=== PATIENT | male | born 1975 | race American Indian/Alaskan Native ===

== ENCOUNTER 2020-11-04 09:07 | Observation (INO) | payer SELFPAY ==
--- NOTE | 2020-11-04 09:28 | Emergency Department Report ---
HPI - General Time Seen by Provider: 11/04/20 09:16 - HPI HPI: 45-year-old -[place] male presents to the emergency department via EMS from dialysis after he developed shortness of breath and diaphoresis. The patient was found to have a very elevated blood pressure as he has been out of some of his blood pressure medications over the past few days, and also did not receive dialysis this morning. He denies any chest pain, headache, vision change, fever, cough. He has a history of hypertension, end-stage renal disease on hemodialysis on Tuesday//Tuesday. His flap presser is Dr. Tran. No recent travel or sick contacts at home. The patient is vaccinated against COVID-19. He was found to have a room air oxygen saturation of 88% upon EMS arrival. The patient was placed on a nonrebreather and went up to 100% on presentation here and is at 95% on 4 L by nasal cannula. ED Review of Systems ROS: Stated complaint: DIFFICULTY BREATHING Other details as noted in HPI Comment: All other systems reviewed and negative Constitutional: diaphoresis. denies: chills, fever Eyes: denies: eye pain, vision change ENT: denies: ear pain, throat pain Respiratory: shortness of breath. denies: cough Cardiovascular: denies: chest pain, edema Gastrointestinal: denies: abdominal pain, vomiting Genitourinary: denies: dysuria, discharge Musculoskeletal: denies: back pain, arthralgia Skin: denies: rash, lesions Neurological: denies: headache, weakness Physical Exam - Physical Exam Physical Exam: GENERAL: The patient is well-developed well-nourished. HENT: Normocephalic. Atraumatic. Patient has moist mucous membranes. EYES: Extraocular motions are intact. NECK: Supple. Trachea is midline. CHEST/LUNGS: Coarse breath sounds throughout the chest. There is tachypnea but no conversational dyspnea. There is a right-sided chest Vas-Cath. HEART/CARDIOVASCULAR: Regular. There is mild tachycardia. There is no murmur. ABDOMEN: Abdomen is soft, nontender. Patient has normal bowel sounds. There is no abdominal distention. SKIN: Skin is warm and dry. NEURO: The patient is awake, alert, and oriented. The patient is cooperative. The patient has no focal neurologic deficits. Normal speech. MUSCULOSKELETAL: There is no tenderness or deformity. There is no limitation ra nge of motion. ED Course - Consultations Consultation #1: 11/04/20 12:31 I spoke to the nurse practitioner, Becky, for [facility] neph[facility], working under Dr. Tran. She is aware of the patient's presentation and the ky ed for expedient dialysis. They are aware of the consult. ED Medical Decision Making - Lab Data Result diagrams: 11/04/20 10:05 11/04/20 10:05 Lab Results 11/04/20 11/04/20 11/04/20 Range/Units 10:05 10:05 10:05 WBC 9.5 (4.5-11.0) K/mm3 RBC 3.60 L (3.65-5.03) M/mm3 Hgb 10.9 L (11.8-15.2) gm/dl Hct 32.7 L (35.5-45.6) % MCV 91 (84-94) fl MCH 30 (28-32) pg MCHC 33 (32-34) % RDW 17.3 H (13.2-15.2) % Plt Count 173 (140-440) K/mm3 Lymph % (Auto) 4.2 L (13.4-35.0) % [place] % (Auto) 7.9 H (0.0-7.3) % Eos % (Auto) 0.5 (0.0-4.3) % Baso % (Auto) 0.6 (0.0-1.8) % Lymph # (Auto) 0.4 L (1.2-5.4) K/mm3 [place] # (Auto) 0.8 (0.0-0.8) K/mm3 Eos # (Auto) 0.1 (0.0-0.4) K/mm3 Baso # (Auto) 0.1 (0.0-0.1) K/mm3 Seg Neutrophils % 86.8 H (40.0-70.0) % Seg Neutrophils # 8.3 H (1.8-7.7) K/mm3 D-Dimer 1139.07 H (0-234) ng/mlDDU Sodium 141 (137-145) mmol/L Potassium 5.1 H (3.6-5.0) mmol/L Chloride 101.2 (98-107) mmol/L Carbon Dioxide 27 (22-30) mmol/L Anion Gap 18 mmol/L BUN 60 H (9-20) mg/dL Creatinine 11.0 H (0.8-1.3) mg/dL Estimated GFR 6 ml/min BUN/Creatinine Ratio 5 % Glucose 97 (75-100) mg/dL Calcium 10.2 (8.4-10.2) mg/dL Total Bilirubin 0.40 (0.1-1.2) mg/dL AST 38 (5-40) units/L ALT 20 (7-56) units/L Alkaline Phosphatase 138 H (35-129) units/L Troponin T 0.244 H* (0.00-0.029) ng/mL NT-Pro-B Natriuret Pep > 96222 H (0-450) pg/mL Total Protein 8.3 H (6.3-8.2) g/dL Albumin 4.2 (3.9-5) g/dL Albumin/Globulin Ratio 1.0 % Triglycerides 43 (2-149) mg/dL Cholesterol 115 (50-199) mg/dL LDL Cholesterol Direct 50 (50-130) mg/dL HDL Cholesterol 62 H (40-59) mg/dL Cholesterol/HDL Ratio 1.85 % - EKG Data -: EKG Interpreted by Me EKG shows normal: sinus rhythm, axis, intervals, QRS complexes (Low voltage), ST-T waves Rate: tachycardia (110 bpm) - EKG Data When compared to previous EKG there are: previous EKG unavailable Interpretation: other (Sinus tachycardia 110 bpm, normal axis, normal intervals, low voltage QRS. No ST elevation DE) - Radiology Data Radiology results: report reviewed, image reviewed interpreted by me: Chest x-ray shows pulmonary vascular congestion and bilateral interstitial edema. No pneumothorax. No widened mediastinum. NUCLEAR MEDICINE PERFUSION LUNG SCAN INDICATION / CLINICAL INFORMATION: SOB, elevated dimer. TECHNIQUE: 5 mCi of Tc-99m MAA were given by IV. COMPARISON: Chest radiograph dated 11/04/2020. FINDINGS: PERFUSION: There is a perfusion defect in the left costophrenic angle which corresponds to a small left pleural effusion noted on chest radiograph. No other perfusion defects are seen. ADDITIONAL FINDINGS: None. IMPRESSION: 1. Low probability for pulmonary embolism. - Medical Decision Making This patient presents to the emergency department from dialysis after having sudden onset of shortness of breath and some diaphoresis that caused him to not receive dialysis. The patient also had some hypoxia that initially required a nonrebreather but we were able to decrease it down to about 4 L oxygen via nasal cannula. Chest x-ray shows volume overload. Labs show the renal insufficiency consistent with his end-stage renal disease on hemodialysis. Mild hyperkalemia. There is an elevated troponin but this is most likely secondary to his ESRD and the patient denies having chest pain. He had an elevated D-dimer level so a ventilation/perfusion scan was performed that came back low probability for a PE. Nephrology was contacted and consulted and he is currently receiving dialysis. The patient will be admitted to the hospitalist and was accepted by Dr. Rodriguez. Critical Care Time: No Critical care attestation.: If time is entered above; I have spent that time in minutes in the direct care of this critically ill patient, excluding procedure time. ED Disposition Clinical Impression: Hypoxia, ESRD needing dialysis, Hypertensive urgency Dyspnea Qualifiers: Dyspnea type: shortness of breath Qualified Code(s): R06.02 - Shortness of breath; R06.00 - Dyspnea, unspecified; R06.01 - Orthopnea Disposition: ADMITTED INPATIENT Is pt being admited?: Yes Condition: Serious Time of Disposition: 11:51
--- NOTE | 2020-11-04 09:48 | XRay Report ---
CHEST 2 VIEWS INDICATION / CLINICAL INFORMATION: Shortness of breath.. COMPARISON: None available. FINDINGS: SUPPORT DEVICES: Right-sided dialysis catheter with tip at the SVC/right atrial junction. HEART / MEDIASTINUM: Enlarged cardiac silhouette area LUNGS / PLEURA: Prominent pulmonary vasculature with faint hazy interstitial markings, possibly repre senting pulmonary vascular congestion/volume overload. No pneumothorax. ADDITIONAL FINDINGS: No significant additional findings. IMPRESSION: Findings suggestive of pulmonary vascular congestion/volume overload. Enlarged cardiac silhouette. Signer Name: Frederick Champagne MD Signed: 11/04/2020 9:43 AM Workstation Name: [id number]
[2020-11-04] MEDS ORDERED: cloNIDine 0.2 MG TAB PO ONE (10:00)
--- NOTE | 2020-11-04 10:25 | Electrocardiograph Report ---
[facility] Test Date: 2020-11-04 Test Time: 09:13:40 Pat Name: DOLORES ROSA Department: Room: Gender: M Loan Approver: LILLIANA : 1975 Requested By: LAUREEN ROQUE Order Number: [id number] Reading MD: Shawn Potter Measurements Intervals [place] Rate: 110 P: 46 IN: 175 QRS: 3 QRSD: 102 T: 81 QT: 352 QTc: 477 Interpretive Statements Sinus tachycardia Low voltage, extremity leads No previous ECG available for comparison Electronically Signed On 11-04-2020 10:24:52 EDT by Shawn Potter
[2020-11-04 11:10] LABS: Basophils # (Auto) 0.1 K/mm3 (0.0-0.1); Basophils % (Auto) 0.6 % (0.0-1.8); Eosinophils # (Auto) 0.1 K/mm3 (0.0-0.4); Eosinophils % (Auto) 0.5 % (0.0-4.3); Hematocrit 32.7 % (35.5-45.6); Hemoglobin 10.9 gm/dl (11.8-15.2); Lymphocytes # (Auto) 0.4 K/mm3 (1.2-5.4); Lymphocytes % (Auto) 4.2 % (13.4-35.0); Mean Corpuscular HGB Conc 33 % (32-34); Mean Corpuscular Volume 91 fl (84-94); Monocytes # (Auto) 0.8 K/mm3 (0.0-0.8); Monocytes % (Auto) 7.9 % (0.0-7.3); Platelet Count 173 K/mm3 (140-440); Red Cell Distribution Width 17.3 % (13.2-15.2)
[2020-11-04 11:37] LABS: Alanine Aminotransferase 20 units/L (7-56); Albumin 4.2 g/dL (3.9-5); Blood Urea Nitrogen 60 mg/dL (9-20); Calcium 10.2 mg/dL (8.4-10.2); Hemolysis Index 0
[2020-11-04 11:46] LABS: BUN/Creatinine Ratio 5
[2020-11-04 12:13] LABS: Chol/HDL Ratio 1.85 %; HDL Cholesterol 62 mg/dL (40-59); LDL Cholesterol,Direct 50 mg/dL (50-130)
--- NOTE | 2020-11-04 14:38 | Nuclear Medicine Report ---
NUCLEAR MEDICINE PERFUSION LUNG SCAN INDICATION / CLINICAL INFORMATION: SOB, elevated dimer. TECHNIQUE: 5 mCi of Tc-99m MAA were given by IV. COMPARISON: Chest radiograph dated 11/04/2020. FINDINGS: PERFUSION: There is a perfusion defect in the left costophrenic angle which corresponds to a small le ft pleural effusion noted on chest radiograph. No other perfusion defects are seen. ADDITIONAL FINDINGS: None. IMPRESSION: 1. Low probability for pulmonary embolism. Signer Name: Nathen Laws MD Signed: 11/04/2020 2:34 PM Workstation Name: [id number]
[2020-11-04 15:13] LABS: Hepatitis C Virus Antibody Non-Reactive (NonReactive)
[2020-11-04 15:23] LABS: Hepatitis B Surface Antigen Nonreactive (Negative)
[2020-11-04 18:35] VITALS: BP 187/98
[2020-11-04] MEDS ORDERED: oxyCODONE /ACETAMINOPHEN 5-325MG TAB PO PRN (20:20)
[2020-11-04] MEDS ORDERED: HYDROmorphone 1 MG/1 ML INJ IV PRN (20:20)
[2020-11-04] MEDS ORDERED: ACETAMINOPHEN 325 MG TAB PO PRN (20:20)
[2020-11-04] MEDS ORDERED: ONDANSETRON 4 MG/2 ML INJ IV PRN (20:20)
[2020-11-04] MEDS ORDERED: VALSARTAN 160MG TAB PO SCH (21:00)
[2020-11-04] MEDS ORDERED: carvediloL 6.25 MG TAB PO SCH (22:00)
[2020-11-04] MEDS ORDERED: HEPARIN 5,000 UNIT/1 ML VIAL SUB-Q SCH (22:00)
[2020-11-04] MEDS ORDERED: FAMOTIDINE 20 MG TAB PO SCH (22:00)
== END 2020-11-05 | disposition left against medical advice (07) ==
LOC: ED 09:07 → 4A 11:51 → INTOOBSV 11:51 → 3A 20:29
PROVIDERS: ADMIT Internal Medicine; ATTEND Internal Medicine
DX: I16.0 Hypertensive urgency (principal); N18.6 End stage renal disease; R09.02 Hypoxemia; R06.00 Dyspnea, unspecified; Z99.2 Dependence on renal dialysis
CPT/HCPCS: 36415; 71046; 78580; 80053; 80061; 80074; 83880; 84484; 85025; 85379; 93005; 99285; A9540; G0257; G0378

== ENCOUNTER 2020-12-17 10:37 | Day surgery (SDC) | payer MEDICARE ==
[~2020-12-17 10:37] MED LIST: MIDAZOLAM 2 MG/2 ML INJ IV NR; SODIUM CHLORIDE 0.9% 1000 ML 1,000 ML IV SCH
[2020-12-17] MEDS ORDERED: HEPARIN 10,000 UNITS/10 ML VIAL ONE (10:40)
[2020-12-17] MEDS ORDERED: PROTAMINE SULFATE 50 MG/5 ML INJ ONE (10:40)
[2020-12-17] MEDS ORDERED: BUPIVACAINE/PF (0.5%) 5 MG/1 ML 30 ML VIAL INFILTRATI ONE (10:40)
[2020-12-17] MEDS ORDERED: SODIUM CHLORIDE 0.9% 250ML 250 ML ONE (10:40)
[2020-12-17] MEDS ORDERED: LIDOCAINE (1%) 10 MG/1 ML VIAL 20 ML MDV ONE (10:40)
[2020-12-17] MEDS ORDERED: THROMBIN (RECOMBINANT) 5,000 UNIT VIAL TP ONE ×2 (10:41→14:19)
[2020-12-17 11:21] LABS: Basophils # (Auto) 0.1 K/mm3 (0.0-0.1); Basophils % (Auto) 1.4 % (0.0-1.8); Eosinophils # (Auto) 0.3 K/mm3 (0.0-0.4); Eosinophils % (Auto) 4.7 % (0.0-4.3); Hematocrit 30.1 % (35.5-45.6); Hemoglobin 9.9 gm/dl (11.8-15.2); Lymphocytes # (Auto) 0.9 K/mm3 (1.2-5.4); Lymphocytes % (Auto) 11.6 % (13.4-35.0); Mean Corpuscular HGB Conc 33 % (32-34); Mean Corpuscular Volume 90 fl (84-94); Monocytes # (Auto) 0.8 K/mm3 (0.0-0.8); Monocytes % (Auto) 11.2 % (0.0-7.3); Platelet Count 212 K/mm3 (140-440); Red Blood Count 3.34 M/mm3 (3.65-5.03); Red Cell Distribution Width 17.1 % (13.2-15.2)
[2020-12-17 11:35] LABS: Calcium 9.3 mg/dL (8.4-10.2)
--- NOTE | 2020-12-17 11:38 | Anesthesia Consultation ---
Anesthesia Consult and Med Hx Date of service: 12/17/20 - Airway Anesthetic Teeth Evaluation: Good ROM Head & Neck: Adequate Mental/Hyoid Distance: Adequate Mallampati Class: Class III Intubation Access Assessment: Possibly Difficult - Pre-Operative Health Status ASA Pre-Surgery Classification: ASA3 Proposed Anesthetic Plan: General - Pulmonary Hx Smoking: No Hx Respiratory Symptoms: No Hx Sleep Apnea: Yes (no CPAP) - Cardiovascular System Hx Hypertension: Yes (took hydralazine, carvedilol, and nifedipine this morning) Hx Heart Attack/AMI: No Hx Percutaneous Transluminal Coronary Angioplasty (PTCA): No Hx Cardia Arrhythmia: No - Central Nervous System CVA: No - Endocrine Hx End Stage Renal Disease: Yes (last HD 12/16/20) Hx Liver Disease: No Hx Insulin Dependent Diabetes: No Hx Non-Insulin Dependent Diabetes: No Hx Thyroid Disease: No - Other Systems Hx Obesity: Yes (BMI 32) - Additional Comments Anesthesia Medical History Comments: No hx anesthetic complications.
[2020-12-17] MEDS ORDERED: ONDANSETRON 4 MG/2 ML INJ IV PRN (11:39)
[2020-12-17] MEDS ORDERED: HYDROcodone/ACETAMINOPHEN 5-325 MG TAB PO PRN (11:39)
[2020-12-17] MEDS ORDERED: fentaNYL 100 MCG/2 ML INJ IV PRN (11:39)
--- NOTE | 2020-12-17 11:39 | Anesthesia Day of Surgery ---
Anesthesia Day of Surgery - Day of Surgery Patient Examined: Yes Patient H&P Reviewed: Yes Patient is NPO: Yes Beta Blockers: Yes
[2020-12-17] MEDS ORDERED: ONDANSETRON 4 MG/2 ML INJ ONE (12:57)
[2020-12-17] MEDS ORDERED: propofoL 200 MG/20 ML VIAL IV ONE (12:57)
[2020-12-17] MEDS ORDERED: LIDOCAINE MPF (2%) 20 MG/1 ML VIAL 5 ML ONE (12:57)
[2020-12-17] MEDS ORDERED: HYDROmorphone 1 MG/1 ML INJ ONE (12:57)
[2020-12-17] MEDS ORDERED: ceFAZolin/Water 2 GM/20 ML 2 GM/20 ML SYRINGE IV ONE (13:33)
[2020-12-17] MEDS ORDERED: ceFAZolin/STERILE WATER 2 GM/20 ML SYRINGE IV NR (14:00)
[2020-12-17] MEDS ORDERED: HEPARIN 10,000 UNITS/10 ML VIAL IR ONE (14:18)
[2020-12-17] MEDS ORDERED: SODIUM CHLORIDE 0.9% IRR 1,500 ML BOTTLE IR ONE (14:19)
[2020-12-17] MEDS ORDERED: PROTAMINE SULFATE 50 MG/5 ML INJ IV ONE (15:00)
--- NOTE | 2020-12-17 15:30 | Post Operative Note ---
Date of procedure: 12/17/20 Pre-op diagnosis: ESRD Post-op diagnosis: same Procedure: Left Arm AV Graft Insertion Anesthesia: GETA Surgeon: RUDOLPH GALLARDO Estimated blood loss: other (25ml) Pathology: none Condition: stable Disposition: PACU
--- NOTE | 2020-12-17 15:32 | Short Stay Summary ---
Short Stay Documentation Date of service: 12/17/20 - History H&P: dictated Past Medical History: ESRD, hypertension - Allergies and Medications Current Medications: Allergies No Known Allergies Allergy (Verified 12/10/20 11:20) Home Medications Medication Instructions Recorded Confirmed Last Taken Type Folic Acid/Vit B Complex and C 800 mcg PO DAILY 12/10/20 12/10/20 Unknown History [Dialyvite 800 Chewable Wafer] Losartan [Cozaar] 100 mg PO QDAY 12/10/20 12/10/20 Unknown History NIFEdipine [Nifedipine] 60 mg PO BID 12/10/20 12/10/20 Unknown History carvediloL [Coreg] 25 mg PO BID 12/10/20 12/10/20 Unknown History hydrALAZINE [Apresoline] 50 mg PO TID 12/10/20 12/10/20 Unknown History Active Medications Hydrocodone Bitart/Acetaminophen (Hydrocodone/Acetaminophen 5-325 Mg Tab) 2 each PO ONCE PRN PRN Reason: Pain, Moderate (4-6) Cefazolin Sodium (Cefazolin/Sterile Water 2 Gm/20 Ml Syringe) 2 gm IV PREOP NR Stop: 12/17/20 23:59 Fentanyl (Fentanyl 100 Mcg/2 Ml Inj) 50 mcg IV Q5MIN PRN PRN Reason: Pain , Severe (7-10) Sodium Chloride (Nacl 0.9% 1000 Ml) 1,000 mls @ 42 mls/hr IV DIRECT TJ Stop: 12/17/20 23:59 Last Admin: 12/17/20 11:34 Dose: 42 mls/hr Documented by: Midazolam HCl (Midazolam 2 Mg/2 Ml Inj) 2 mg IV PREOP NR Stop: 12/17/20 23:59 Ondansetron HCl (Ondansetron 4 Mg/2 Ml Inj) 4 mg IV ONCE PRN PRN Reason: Nausea And Vomiting - Physical exam General appearance: no acute distress HEENT: Atraumatic Lungs: Normal air movement Heart: Regular rate Extremities: no ischemia - Hospital course Hospital course: the patient was taken to the operating room and had a left arm av graft insertion performed. please refer to the operative note concerning details of the procedure. the patient tolerated the procedure well and was discharged home in stable condition. - Disposition Condition at discharge: Stable Disposition: 01 HOME / SELF CARE / HOMELESS Short Stay Discharge Plan Follow up with: PRIMARY CARE, [Primary Care Provider] - 7 Days
[2020-12-17] MEDS ORDERED: oxyCODONE /ACETAMINOPHEN 5-325MG TAB PO PRN (15:33)
[2020-12-17] MEDS ORDERED: dexAMETHasone 20 MG/5 ML VIAL ONE (15:38)
--- NOTE | 2020-12-17 15:56 | Operative Report ---
DATE OF SURGERY: 12/17/2020 STAFF SURGEON: Dr. Scott Kovacs. PREOPERATIVE DIAGNOSIS: End-stage renal disease. POSTOPERATIVE DIAGNOSIS: End-stage renal disease. PROCEDURE PERFORMED: Left arm AV graft insertion. COMPLICATIONS: None. ESTIMATED BLOOD LOSS: 25 mL. ANESTHESIA: General. INDICATIONS FOR PROCEDURE: This is a 45-year-old gentleman with end-stage renal disease on hemodialysis via right IJ PermCath in need of upper extremity access. The patient did not have any suitable veins in the left upper extremity, is slated to undergo AV graft insertion. The patient was explained the risks, benefits and alternative of procedure, expressed understanding and wished to proceed. DESCRIPTION OF PROCEDURE: After appropriate consent was obtained, the patient was brought back to the operating room and placed on the operating table in supine position. The left arm extended. The patient was given appropriate medication for general anesthesia and was intubated, had LMA placed without difficulty. Left arm was prepped and draped in usual sterile fashion with ChloraPrep. Appropriate preoperative antibiotics were administered and appropriate timeout was performed indicating the correct patient, procedure and site of procedure. We then began the operation by making a longitudinal incision in the antecubital fossa. This was carried through the subcutaneous tissue with combination of blunt dissection and electrocautery. Dissection was continued through the bicep aponeurosis, which allowed us to expose the brachial artery, which was found to be suitable for arterial inflow. It was mobilized for appropriate distance both proximally and distally. We then turned our attention to the axilla and made a transverse incision. This was carried through the subcutaneous tissue with combination of blunt dissection and electrocautery. Dissection was continued through the fascia overlying the axillary neurovascular bundle. Axillary vein was identified and found to be suitable in size for venous outflow, was mobilized for appropriate distance both proximally and distally. We then proceeded to create a subcutaneous tunnel bringing it through a 4-7 mm tapered Propaten graft. The patient was given 5000 units of unfractionated heparin. After appropriate timeout elapsed, the graft was appropriately spatulated. Vascular clamps were placed on the brachial artery, both proximally and distally. A longitudinal arteriotomy was made with an 11 blade, extended with Edouard scissors. An end-to-side anastomosis was performed with a running 6-0 Prolene suture. Flow was established through the graft, had a nice pulsatile flow. Graft was cut to appropriate length and spatulated. Vascular clamps were then placed on the axillary vein, both proximally and distally. Longitudinal venotomy was made, extended with Edouard scissors. An end-to-side anastomosis was performed with a running 5-0 Prolene suture. Once complete, flow was established through the graft with a nice palpable thrill. We then looked to obtain hemostasis along the suture lines, which was obtained with hemostatic agents. After appropriate time had lapsed and we were satisfied with hemostasis, we then proceeded to close both wounds, the deep subcutaneous layer with interrupted 3-0 PDS and the skin was approximated with laura. Appropriate dressing was placed. The patient tolerated the procedure well, emerged from the general anesthesia, had LMA removed and was sent to recovery room in stable condition. All sponge, instrument and needle counts were correct at completion of the operation. TID: [id number] RECEIPT: [id number] KRISTA/BRYAN
--- NOTE | 2020-12-17 17:27 | Post Anesthesia Evaluation ---
- Post Anesthesia Evaluation Patient Participated: Yes Airway Patent: Yes Stable Respiratory Function: Yes Nausea/Vomiting: No Temp > 96.8F: Yes Pain Manageable: Yes Adequeate Hydration: Yes Anesthesia Complications: No
[2020-12-17 18:03] VITALS: BP 151/84
== END 2020-12-17 17:40 | disposition home or self-care (01) ==
LOC: OR 10:37
PROVIDERS: ATTEND Surgery Vascular Surgery
DX: I12.0 Hypertensive chronic kidney disease with stage 5 chronic kidney disease or end stage renal disease (principal); N18.6 End stage renal disease; Z20.828 Contact with and (suspected) exposure to other viral communicable diseases; E66.9 Obesity, unspecified; Z68.32 Body mass index [BMI] 32.0-32.9, adult; Z79.899 Other long term (current) drug therapy; Z98.890 Other specified postprocedural states
CPT/HCPCS: 36415; 36830; 80048; 82962; 85025; J0690; J1100; J1170; J1644; J2405; J2704; J2720; J7030; J7050; U0003; J2250

== ENCOUNTER 2021-02-09 15:11 | Emergency (ER) | payer MEDICARE ==
[2021-02-09 15:17] VITALS: BP 134/72
--- NOTE | 2021-02-09 15:55 | Emergency Department Report ---
ED General Adult HPI - General Chief complaint: Medical Clearance Stated complaint: MISSED DIALYSIS Time Seen by Provider: 02/09/21 15:24 Source: patient Mode of arrival: Ambulatory Limitations: No Limitations - History of Present Illness Initial comments: Patient is a 45-year-old male presents emergency room with complaints of needing dialysis. Patient states that he typically goes to dialysis on Tuesday, , Tuesday. He states last week that they were on a holiday schedule and he went to dialysis on Tuesday and Tuesday. Patient states that he went out of town so therefore he missed dialysis. He has not had dialysis since Tuesday02/04/21. He states he feels like he does have some fluid on him and mild shortness of breath. He denies any chest pain, fever, cough, vomiting, diarrhea. He states his manager customer service is Dr. Wilhelm. No allergies to medications. - Related Data Home Medications Medication Instructions Recorded Confirmed Last Taken Folic Acid/Vit B Complex and C 800 mcg PO DAILY 12/10/20 12/10/20 Unknown [Dialyvite 800 Chewable Wafer] Losartan [Cozaar] 100 mg PO QDAY 12/10/20 12/10/20 Unknown NIFEdipine [Nifedipine] 60 mg PO BID 12/10/20 12/10/20 Unknown carvediloL [Coreg] 25 mg PO BID 12/10/20 12/10/20 Unknown hydrALAZINE [Apresoline TAB] 50 mg PO TID 12/10/20 12/10/20 Unknown Previous Rx's Medication Instructions Recorded Last Taken Type HYDROcodone/APAP 5-325 [[place] 1 each PO ONCE PRN #24 tablet 12/17/20 Unknown Rx 5-325 mg TAB] Allergies Allergy/AdvReac Type Severity Reaction Status Date / Time No Known Allergies Allergy Verified 02/09/21 15:12 ED Review of Systems ROS: Stated complaint: MISSED DIALYSIS Other details as noted in HPI Comment: All other systems reviewed and negative ED Past Medical Hx - Past Medical History Hx Hypertension: Yes (took hydralazine, carvedilol, and nifedipine this morning) Hx Heart Attack/AMI: No Hx Liver Disease: No Hx Renal Disease: Yes Hx HIV: No - Surgical History Additional Surgical History: FISTULA/ - Social History Smoking Status: Never Smoker - Medications Home Medications: Home Medications Medication Instructions Recorded Confirmed Last Taken Type Folic Acid/Vit B Complex and C 800 mcg PO DAILY 12/10/20 12/10/20 Unknown History [Dialyvite 800 Chewable Wafer] Losartan [Cozaar] 100 mg PO QDAY 12/10/20 12/10/20 Unknown History NIFEdipine [Nifedipine] 60 mg PO BID 12/10/20 12/10/20 Unknown History carvediloL [Coreg] 25 mg PO BID 12/10/20 12/10/20 Unknown History hydrALAZINE [Apresoline TAB] 50 mg PO TID 12/10/20 12/10/20 Unknown History HYDROcodone/APAP 5-325 [[place] 1 each PO ONCE PRN #24 tablet 12/17/20 Unknown Rx 5-325 mg TAB] ED Physical Exam - General Limitations: No Limitations General appearance: alert, in no apparent distress - Head Head exam: Present: atraumatic, normocephalic - Eye Eye exam: Present: normal appearance - ENT ENT exam: Present: mucous membranes moist - Respiratory Respiratory exam: Present: normal lung sounds bilaterally, other (right chest port, clean, dry, intact). Absent: respiratory distress, wheezes, rales, rhonchi, stridor, chest wall tenderness, accessory muscle use, decreased breath sounds, prolonged expiratory - Cardiovascular Cardiovascular Exam: Present: regular rate, normal rhythm, normal heart sounds. Absent: systolic murmur, diastolic murmur, rubs, gallop - Neurological Exam Neurological exam: Present: alert, oriented X3 - Psychiatric Psychiatric exam: Present: normal affect, normal mood - Skin Skin exam: Present: warm, dry, intact ED Course Vital Signs 02/09/21 02/09/21 15:16 15:17 Temperature 97.7 F Pulse Rate 101 H Respiratory 18 Rate Blood Pressure 134/72 O2 Sat by Pulse 99 Oximetry - Consultations Consultation #1: 02/09/21 18:[address] Thorne, nephrology regarding patient history and results, advised to give patient a printout of his labs and have patient follow-up with his dialysis clinic tomorrow, he states pt does not need emergent dialysis ED Medical Decision Making - Lab Data Result diagrams: 02/09/21 15:44 02/09/21 15:44 Lab Results 02/09/21 02/09/21 Range/Units 15:44 15:44 WBC 4.9 (4.5-11.0) K/mm3 RBC 3.94 (3.65-5.03) M/mm3 Hgb 10.7 L (11.8-15.2) gm/dl Hct 34.1 L (35.5-45.6) % MCV 86 (84-94) fl MCH 27 L (28-32) pg MCHC 31 L (32-34) % RDW 15.9 H (13.2-15.2) % Plt Count 134 L (140-440) K/mm3 Lymph % (Auto) 16.9 (13.4-35.0) % [place] % (Auto) 10.8 H (0.0-7.3) % Eos % (Auto) 3.2 (0.0-4.3) % Baso % (Auto) 1.4 (0.0-1.8) % Lymph # (Auto) 0.8 L (1.2-5.4) K/mm3 [place] # (Auto) 0.5 (0.0-0.8) K/mm3 Eos # (Auto) 0.2 (0.0-0.4) K/mm3 Baso # (Auto) 0.1 (0.0-0.1) K/mm3 Seg Neutrophils % 67.7 (40.0-70.0) % Seg Neutrophils # 3.4 (1.8-7.7) K/mm3 Sodium 140 (137-145) mmol/L Potassium 5.2 H (3.6-5.0) mmol/L Chloride 97.0 L (98-107) mmol/L Carbon Dioxide 19 L (22-30) mmol/L Anion Gap 29 mmol/L BUN 106 H (9-20) mg/dL Creatinine 19.3 H (0.8-1.3) mg/dL Estimated GFR 3 ml/min BUN/Creatinine Ratio 5 % Glucose 95 (75-100) mg/dL Calcium 8.5 (8.4-10.2) mg/dL Total Bilirubin 0.40 (0.1-1.2) mg/dL AST 19 (5-40) units/L ALT 11 (7-56) units/L Alkaline Phosphatase 76 (35-129) units/L Total Protein 8.2 (6.3-8.2) g/dL Albumin 3.8 L (3.9-5) g/dL Albumin/Globulin Ratio 0.9 % - Radiology Data Radiology results: report reviewed Ordering Physician: ELIZA AGUSTIN Date of Service: 02/09/21 Procedure(s): XR chest routine 2V Accession Number(s): [id number] cc: ELIZA AGUSTIN Fluoro Time In Minutes: CHEST 2 VIEWS INDICATION: missed dialysis, SOB. COMPARISON: 11/04/2020 FINDINGS: Support devices: Dialysis catheter unchanged. Heart: Stable cardiomegaly. Lungs/Pleura: Mild vascular congestion. Slightly more localized opacity right base is likely vascular in origin. Persistent left basilar effusion/thickening. IMPRESSION: 1. Mild vascular congestion. 2. Persistent left basilar effusion/thickening. Signer Name: Scott Gastelum MD Signed: 02/09/2021 4:35 PM Workstation Name: [id number] Transcribed By: ES Dictated By: Scott Gastelum MD Electronically Authenticated By: Scott Gastelum MD Signed Date/Time: 02/09/211634 DD/ 163 TD/TT: - Medical Decision Making Patient is a 45-year-old male presents emergency room with complaints of needing dialysis. Patient states that he typically goes to dialysis on Tuesday, , Tuesday. He states last week that they were on a holiday schedule and he went to dialysis on Tuesday and Tuesday. Patient states that he went out of town so therefore he missed dialysis. He has not had dialysis since Tuesday02/04/21. He states he feels like he does have some fluid on him and mild shortness of breath. He denies any chest pain, fever, cough, vomiting, diarrhea. He states his manager customer service is Dr. Wilhelm. No allergies to medications. vss. CXR: 1. Mild vascular congestion. 2. Persistent left basilar effusion/thickening. cr 19.3, BUN 106, potassium 5.2. spoke to Dr. Thorne, nephrology regarding patient history and results, advised to give patient a p rintout of his labs and have patient follow-up with his dialysis clinic tomorrow, he states pt does not need emergent dialysis. Printed patient's labs and gave to patient. Advised patient Please take your lab results with you to dialysis clinic tomorrow (02/10/2021). Follow-up with your manager customer service. Return to emergency room for any new or worsening symptoms. Critical care attestation.: If time is entered above; I have spent that time in minutes in the direct care o f this critically ill patient, excluding procedure time. ED Disposition Clinical Impression: ESRD (end stage renal disease) Disposition: 01 HOME / SELF CARE / HOMELESS Is pt being admited?: No Does the pt Need Aspirin: No Condition: Stable Instructions: Dialysis Additional Instructions: Please take your lab results with you to dialysis clinic tomorrow (02/10/2021). Follow-up with your manager customer service. Return to emergency room for any new or worsening symptoms. Referrals: PRIMARY CARE, [Primary Care Provider] - 3-5 Days ANTONIA WILHELM MD [Staff Physician] - 3-5 Days Time of Disposition: 18:04 Print Language: INDONESIAN
--- NOTE | 2021-02-09 16:40 | XRay Report ---
CHEST 2 VIEWS INDICATION: missed dialysis, SOB. COMPARISON: 11/04/2020 FINDINGS: Support devices: Dialysis catheter unchanged. Heart: Stable cardiomegaly. Lungs/Pleura: Mild vascular congestion. Slightly more localized opacity right base is likely vascul ar in origin. Persistent left basilar effusion/thickening. IMPRESSION: 1. Mild vascular congestion. 2. Persistent left basilar effusion/thickening. Signer Name: Scott Gastelum MD Signed: 02/09/2021 4:35 PM Workstation Name: [id number]
[2021-02-09 16:44] LABS: Basophils # (Auto) 0.1 K/mm3 (0.0-0.1); Basophils % (Auto) 1.4 % (0.0-1.8); Eosinophils # (Auto) 0.2 K/mm3 (0.0-0.4); Eosinophils % (Auto) 3.2 % (0.0-4.3); Hematocrit 34.1 % (35.5-45.6); Hemoglobin 10.7 gm/dl (11.8-15.2); Lymphocytes # (Auto) 0.8 K/mm3 (1.2-5.4); Lymphocytes % (Auto) 16.9 % (13.4-35.0); Mean Corpuscular HGB Conc 31 % (32-34); Mean Corpuscular Volume 86 fl (84-94); Monocytes # (Auto) 0.5 K/mm3 (0.0-0.8); Monocytes % (Auto) 10.8 % (0.0-7.3); Platelet Count 134 K/mm3 (140-440); Red Blood Count 3.94 M/mm3 (3.65-5.03); Red Cell Distribution Width 15.9 % (13.2-15.2)
[2021-02-09 17:04] LABS: Albumin 3.8 g/dL (3.9-5); Calcium 8.5 mg/dL (8.4-10.2)
== END 2021-02-09 18:20 | disposition home or self-care (01) ==
LOC: ED 15:11
DX: I12.0 Hypertensive chronic kidney disease with stage 5 chronic kidney disease or end stage renal disease (principal); N18.6 End stage renal disease; Z79.899 Other long term (current) drug therapy; Z99.2 Dependence on renal dialysis
CPT/HCPCS: 36415; 71046; 80053; 85025; 99283